=== PATIENT | female | born 1950 | race Caucasian/White ===

== ENCOUNTER 2018-12-25 08:36 | Outpatient (CLI) | payer MEDICARE, OTHER | END 2018-12-25 23:59 | disposition home or self-care (01) | LOC: RAD 08:36 | PROVIDERS: ATTEND Nurse Practitioner Family | DX: M47.813 Spondylosis without myelopathy or radiculopathy, cervicothoracic region (principal); M43.12 Spondylolisthesis, cervical region; M48.02 Spinal stenosis, cervical region; M53.82 Other specified dorsopathies, cervical region; M40.292 Other kyphosis, cervical region; M43.8X4 Other specified deforming dorsopathies, thoracic region; Z87.891 Personal history of nicotine dependence | CPT/HCPCS: 72052; 72074 ==

== ENCOUNTER 2019-04-23 08:43 | Outpatient (CLI) | payer MEDICARE, OTHER | END 2019-04-23 23:59 | disposition home or self-care (01) | LOC: RAD 08:43 | PROVIDERS: ATTEND Nurse Practitioner Family | DX: R05 Cough (principal) | CPT/HCPCS: 71046 ==

== ENCOUNTER 2021-10-13 09:42 | Outpatient (CLI) | payer MEDICARE, OTHER | END 2021-10-13 23:59 | disposition home or self-care (01) | LOC: RAD 09:42 | PROVIDERS: ATTEND Nurse Practitioner | DX: M19.032 Primary osteoarthritis, left wrist (principal); M19.042 Primary osteoarthritis, left hand; W19.XXXS Unspecified fall, sequela | CPT/HCPCS: 73110; 73130 ==